=== PATIENT | male | born 1970 | race American Indian/Alaskan Native ===

== ENCOUNTER 2017-11-19 11:13 | Emergency (ER) | payer OTHER ==
[2017-11-19] MEDS ORDERED: NACL 0.9% 1000 ML 1,000 ML IV ONE ×3 (11:35→12:48)
[2017-11-19] MEDS ORDERED: NARCAN 2 MG/2 ML IV ONE (11:35)
[2017-11-19] MEDS ORDERED: ZOFRAN IV ONE ×2 (11:36→11:44)
--- NOTE | 2017-11-19 11:44 | Emergency Department Report ---
ED Altered Mental Status HPI - General Chief Complaint: Overdose Stated Complaint: OVERDOSE Time Seen by Provider: 11/19/17 11:32 Source: EMS Mode of arrival: Stretcher Limitations: Altered Mental Status - History of Present Illness Initial Comments: Patient is 47 years old male known to this provider. Patient brought into the ER via EMS for evaluation of altered mental status and decreased responsiveness. EMS stated patient was found in someone else house. EMS stated that the patient initial respiratory rate was 4-6 breath their minutes with initial oxygen saturation of 60%. Patient pupils are pinpoint. Patient was given 2 mg of Narcan and he started spontaneously. Upon arrival to the ER physician oxygen saturation is 98% on room air, heart rate is 140. Patient is responding to voice stimuli, he is moving all his extremities. Patient immediately put on personnel monitor, IV access, fluid is started and patient given another Narcan 2 mg and started on Narcan drip. EMS is stated that the bystander was found patient told them that patient had history of heroine addiction. MD Complaint: altered mental status, confusion, decreased responsiveness -: unknown - Related Data Allergies Allergy/AdvReac Type Severity Reaction Status Date / Time No Known Allergies Allergy Unverified 11/19/17 11:31 ED Review of Systems ROS: Stated complaint: OVERDOSE Other details as noted in HPI Comment: Unobtainable due to pts medical conditions ED Past Medical Hx - Past Medical History Previous Medical History?: No - Surgical History Past Surgical History?: No - Social History Smoking Status: Unknown if ever smoked Substance Use Type: Heroin ED Physical Exam - General Limitations: Altered Mental Status General appearance: obtunded - Head Head exam: Present: other (abrasion to the nose.) - Eye Eye exam: Present: normal appearance Pupils: Present: other (pinpoint pupil) - ENT ENT exam: Present: normal exam, mucous membranes dry - Neck Neck exam: Present: normal inspection, full ROM. Absent: tenderness, meningismus, lymphadenopathy, thyromegaly - Respiratory Respiratory exam: Present: normal lung sounds bilaterally - Cardiovascular Cardiovascular Exam: Present: tachycardia - GI/Abdominal GI/Abdominal exam: Present: soft, normal bowel sounds. Absent: distended, tenderness, guarding, rebound, rigid, organomegaly, mass, bruit, pulsatile mass , hernia - Extremities Exam Extremities exam: Present: normal inspection, full ROM, normal capillary refill. Absent: pedal edema, calf tenderness - Back Exam Back exam: Present: normal inspection, full ROM. Absent: CVA tenderness (R), CVA tenderness (L), muscle spasm, paraspinal tenderness, vertebral tenderness, rash noted - Neurological Exam Neurological exam: Present: altered, CN II-XII intact, reflexes normal - Skin Skin exam: Present: warm, intact, normal color ED Course Vital Signs 11/19/17 11/19/17 11/19/17 11:28 11:30 11:31 Temperature 97.9 F Pulse Rate 112 H 116 H Respiratory 8 L 11 L 14 Rate Blood Pressure 121/90 134/95 O2 Sat by Pulse 95 95 93 Oximetry 11/19/17 11/19/17 11/19/17 11:37 12:00 12:36 Temperature Pulse Rate 124 H 111 H Respiratory 20 13 Rate Blood Pressure 121/90 121/90 O2 Sat by Pulse 92 98 97 Oximetry 11/19/17 11/19/17 11/19/17 13:00 13:30 14:00 Temperature Pulse Rate 104 H 101 H 105 H Respiratory 9 L 9 L 11 L Rate Blood Pressure 99/69 104/77 110/75 O2 Sat by Pulse 97 97 94 Oximetry 11/19/17 11/19/17 11/19/17 14:30 15:00 15:30 Temperature Pulse Rate 104 H 106 H 102 H Respiratory 17 10 L 10 L Rate Blood Pressure 110/75 107/77 113/78 O2 Sat by Pulse 96 98 96 Oximetry 11/19/17 11/19/17 11/19/17 16:00 16:30 17:00 Temperature Pulse Rate 103 H 102 H 104 H Respiratory 15 12 10 L Rate Blood Pressure 120/80 132/96 126/83 O2 Sat by Pulse 97 100 96 Oximetry - Reevaluation(s) Reevaluation #1: 11/19/17 13:52 Patient now is alert and oriented 3. Patient still does not also the question if took drugs or not. Reevaluation #2: 11/19/17 16:43 Patient is awake, alert and oriented 3. Patient stated that he used heroine and fentanyl. He stated that he was thinking that he using a small dose but obviously he stated that I used a larger dose. Patient declined drug rehabilitation. Also stated that he was not trying to kill himself he was just trying to get high. I discontinue the Narcan drip and the patient would be observed in the ER for another 2 hours before discharge. - Lab Data Result diagrams: 11/19/17 13:13 11/19/17 11:53 Lab Results 11/19/17 11/19/17 11/19/17 Range/Units 11:53 11:53 11:53 WBC (4.5-11.0) K/mm3 RBC (3.65-5.03) M/mm3 Hgb (11.8-15.2) gm/dl Hct (35.5-45.6) % MCV (84-94) fl MCH (28-32) pg MCHC (32-34) % RDW (13.2-15.2) % Plt Count (140-440) K/mm3 Lymph % (Auto) (13.4-35.0) % Clarke % (Auto) (0.0-7.3) % Eos % (Auto) (0.0-4.3) % Baso % (Auto) (0.0-1.8) % Lymph # (1.2-5.4) K/mm3 Clarke # (0.0-0.8) K/mm3 Eos # (0.0-0.4) K/mm3 Baso # (0.0-0.1) K/mm3 Seg Neutrophils % (40.0-70.0) % Seg Neutrophils # (1.8-7.7) K/mm3 Sodium 139 (137-145) mmol/L Potassium 5.3 H (3.6-5.0) mmol/L Chloride 99.6 (98-107) mmol/L Carbon Dioxide 26 (22-30) mmol/L Anion Gap 19 mmol/L BUN 14 (9-20) mg/dL Creatinine 1.8 H (0.8-1.5) mg/dL Estimated GFR 49 ml/min BUN/Creatinine Ratio 8 % Glucose 58 L (75-100) mg/dL Lactic Acid 3.30 H* (0.7-2.0) mmol/L Calcium 9.2 (8.4-10.2) mg/dL Total Bilirubin 0.30 (0.1-1.2) mg/dL AST 51 H (5-40) units/L ALT 55 (7-56) units/L Alkaline Phosphatase 70 (35-129) units/L Troponin T 0.106 H* (0.00-0.029) ng/mL Total Protein 8.9 H (6.3-8.2) g/dL Albumin 4.5 (3.9-5) g/dL Albumin/Globulin Ratio 1.0 % Triglycerides 101 (2-149) mg/dL Cholesterol 173 (50-199) mg/dL LDL Cholesterol Direct 112 (50-130) mg/dL HDL Cholesterol 64 H (40-59) mg/dL Cholesterol/HDL Ratio 2.70 % Urine Color (Yellow) Urine Turbidity (Clear) Urine pH (5.0-7.0) Ur Specific [place] (1.003-1.030) Urine Protein (Negative) mg/dL Urine Glucose (UA) (Negative) mg/dL Urine Ketones (Negative) mg/dL Urine Blood (Negative) Urine Nitrite (Negative) Urine Bilirubin (Negative) Urine Urobilinogen (<2.0) mg/dL Ur Leukocyte Esterase (Negative) Urine WBC (Auto) (0.0-6.0) /HPF Urine RBC (Auto) (0.0-6.0) /HPF U Epithel Cells (Auto) (0-13.0) /HPF Urine Bacteria (Auto) (Negative) /HPF Amorphous Crystals Urine Mucus /HPF Salicylates (2.8-20.0) mg/dL Urine Opiates Screen Urine Methadone Screen Acetaminophen (10.0-30.0) ug/mL Ur Barbiturates Screen Ur Phencyclidine Scrn Ur Amphetamines Screen U Benzodiazepines Scrn Urine Cocaine Screen U Marijuana (THC) Screen Drugs of Abuse Note Plasma/Serum Alcohol (0-0.07) % 11/19/17 11/19/17 11/19/17 Range/Units 11:53 11:53 11:53 WBC (4.5-11.0) K/mm3 RBC (3.65-5.03) M/mm3 Hgb (11.8-15.2) gm/dl Hct (35.5-45.6) % MCV (84-94) fl MCH (28-32) pg MCHC (32-34) % RDW (13.2-15.2) % Plt Count (140-440) K/mm3 Lymph % (Auto) (13.4-35.0) % Clarke % (Auto) (0.0-7.3) % Eos % (Auto) (0.0-4.3) % Baso % (Auto) (0.0-1.8) % Lymph # (1.2-5.4) K/mm3 Clarke # (0.0-0.8) K/mm3 Eos # (0.0-0.4) K/mm3 Baso # (0.0-0.1) K/mm3 Seg Neutrophils % (40.0-70.0) % Seg Neutrophils # (1.8-7.7) K/mm3 Sodium (137-145) mmol/L Potassium (3.6-5.0) mmol/L Chloride (98-107) mmol/L Carbon Dioxide (22-30) mmol/L Anion Gap mmol/L BUN (9-20) mg/dL Creatinine (0.8-1.5) mg/dL Estimated GFR ml/min BUN/Creatinine Ratio % Glucose (75-100) mg/dL Lactic Acid (0.7-2.0) mmol/L Calcium (8.4-10.2) mg/dL Total Bilirubin (0.1-1.2) mg/dL AST (5-40) units/L ALT (7-56) units/L Alkaline Phosphatase (35-129) units/L Troponin T (0.00-0.029) ng/mL Total Protein (6.3-8.2) g/dL Albumin (3.9-5) g/dL Albumin/Globulin Ratio % Triglycerides (2-149) mg/dL Cholesterol (50-199) mg/dL LDL Cholesterol Direct (50-130) mg/dL HDL Cholesterol (40-59) mg/dL Cholesterol/HDL Ratio % Urine Color (Yellow) Urine Turbidity (Clear) Urine pH (5.0-7.0) Ur Specific [place] (1.003-1.030) Urine Protein (Negative) mg/dL Urine Glucose (UA) (Negative) mg/dL Urine Ketones (Negative) mg/dL Urine Blood (Negative) Urine Nitrite (Negative) Urine Bilirubin (Negative) Urine Urobilinogen (<2.0) mg/dL Ur Leukocyte Esterase (Negative) Urine WBC (Auto) (0.0-6.0) /HPF Urine RBC (Auto) (0.0-6.0) /HPF U Epithel Cells (Auto) (0-13.0) /HPF Urine Bacteria (Auto) (Negative) /HPF Amorphous Crystals Urine Mucus /HPF Salicylates < 0.3 L (2.8-20.0) mg/dL Urine Opiates Screen Urine Methadone Screen Acetaminophen < 5.0 L (10.0-30.0) ug/mL Ur Barbiturates Screen Ur Phencyclidine Scrn Ur Amphetamines Screen U Benzodiazepines Scrn Urine Cocaine Screen U Marijuana (THC) Screen Drugs of Abuse Note Plasma/Serum Alcohol < 0.01 (0-0.07) % 11/19/17 11/19/17 11/19/17 Range/Units 13:13 14:08 14:08 WBC 13.6 H (4.5-11.0) K/mm3 RBC 5.53 H (3.65-5.03) M/mm3 Hgb 15.6 H (11.8-15.2) gm/dl Hct 48.0 H (35.5-45.6) % MCV 87 (84-94) fl MCH 28 (28-32) pg MCHC 32 (32-34) % RDW 15.9 H (13.2-15.2) % Plt Count 164 (140-440) K/mm3 Lymph % (Auto) 6.3 L (13.4-35.0) % Clarke % (Auto) 11.2 H (0.0-7.3) % Eos % (Auto) 0.1 (0.0-4.3) % Baso % (Auto) 0.3 (0.0-1.8) % Lymph # 0.9 L (1.2-5.4) K/mm3 Clarke # 1.5 H (0.0-0.8) K/mm3 Eos # 0.0 (0.0-0.4) K/mm3 Baso # 0.0 (0.0-0.1) K/mm3 Seg Neutrophils % 82.1 H (40.0-70.0) % Seg Neutrophils # 11.1 H (1.8-7.7) K/mm3 Sodium (137-145) mmol/L Potassium (3.6-5.0) mmol/L Chloride (98-107) mmol/L Carbon Dioxide (22-30) mmol/L Anion Gap mmol/L BUN (9-20) mg/dL Creatinine (0.8-1.5) mg/dL Estimated GFR ml/min BUN/Creatinine Ratio % Glucose (75-100) mg/dL Lactic Acid (0.7-2.0) mmol/L Calcium (8.4-10.2) mg/dL Total Bilirubin (0.1-1.2) mg/dL AST (5-40) units/L ALT (7-56) units/L Alkaline Phosphatase (35-129) units/L Troponin T (0.00-0.029) ng/mL Total Protein (6.3-8.2) g/dL Albumin (3.9-5) g/dL Albumin/Globulin Ratio % Triglycerides (2-149) mg/dL Cholesterol (50-199) mg/dL LDL Cholesterol Direct (50-130) mg/dL HDL Cholesterol (40-59) mg/dL Cholesterol/HDL Ratio % Urine Color Yellow (Yellow) Urine Turbidity Slightly-cloudy (Clear) Urine pH 5.0 (5.0-7.0) Ur Specific [place] 1.011 (1.003-1.030) Urine Protein 100 mg/dl (Negative) mg/dL Urine Glucose (UA) Neg (Negative) mg/dL Urine Ketones Neg (Negative) mg/dL Urine Blood Sm (Negative) Urine Nitrite Neg (Negative) Urine Bilirubin Neg (Negative) Urine Urobilinogen < 2.0 (<2.0) mg/dL Ur Leukocyte Esterase Neg (Negative) Urine WBC (Auto) 5.0 (0.0-6.0) /HPF Urine RBC (Auto) 1.0 (0.0-6.0) /HPF U Epithel Cells (Auto) 1.0 (0-13.0) /HPF Urine Bacteria (Auto) 1+ (Negative) /HPF Amorphous Crystals Few Urine Mucus Few /HPF Salicylates (2.8-20.0) mg/dL Urine Opiates Screen Presumptive positive Urine Methadone Screen Presumptive negative Acetaminophen (10.0-30.0) ug/mL Ur Barbiturates Screen Presumptive negative Ur Phencyclidine Scrn Presumptive negative Ur Amphetamines Screen Presumptive negative U Benzodiazepines Scrn Presumptive negative Urine Cocaine Screen Presumptive positive U Marijuana (THC) Screen Presumptive negative Drugs of Abuse Note Disclamer Plasma/Serum Alcohol (0-0.07) % 11/19/17 11/19/17 Range/Units 14:25 14:25 WBC (4.5-11.0) K/mm3 RBC (3.65-5.03) M/mm3 Hgb (11.8-15.2) gm/dl Hct (35.5-45.6) % MCV (84-94) fl MCH (28-32) pg MCHC (32-34) % RDW (13.2-15.2) % Plt Count (140-440) K/mm3 Lymph % (Auto) (13.4-35.0) % Clarke % (Auto) (0.0-7.3) % Eos % (Auto) (0.0-4.3) % Baso % (Auto) (0.0-1.8) % Lymph # (1.2-5.4) K/mm3 Clarke # (0.0-0.8) K/mm3 Eos # (0.0-0.4) K/mm3 Baso # (0.0-0.1) K/mm3 Seg Neutrophils % (40.0-70.0) % Seg Neutrophils # (1.8-7.7) K/mm3 Sodium (137-145) mmol/L Potassium (3.6-5.0) mmol/L Chloride (98-107) mmol/L Carbon Dioxide (22-30) mmol/L Anion Gap mmol/L BUN (9-20) mg/dL Creatinine (0.8-1.5) mg/dL Estimated GFR ml/min BUN/Creatinine Ratio % Glucose (75-100) mg/dL Lactic Acid 1.80 (0.7-2.0) mmol/L Calcium (8.4-10.2) mg/dL Total Bilirubin (0.1-1.2) mg/dL AST (5-40) units/L ALT (7-56) units/L Alkaline Phosphatase (35-129) units/L Troponin T 0.058 H D (0.00-0.029) ng/mL Total Protein (6.3-8.2) g/dL Albumin (3.9-5) g/dL Albumin/Globulin Ratio % Triglycerides (2-149) mg/dL Cholesterol (50-199) mg/dL LDL Cholesterol Direct (50-130) mg/dL HDL Cholesterol (40-59) mg/dL Cholesterol/HDL Ratio % Urine Color (Yellow) Urine Turbidity (Clear) Urine pH (5.0-7.0) Ur Specific [place] (1.003-1.030) Urine Protein (Negative) mg/dL Urine Glucose (UA) (Negative) mg/dL Urine Ketones (Negative) mg/dL Urine Blood (Negative) Urine Nitrite (Negative) Urine Bilirubin (Negative) Urine Urobilinogen (<2.0) mg/dL Ur Leukocyte Esterase (Negative) Urine WBC (Auto) (0.0-6.0) /HPF Urine RBC (Auto) (0.0-6.0) /HPF U Epithel Cells (Auto) (0-13.0) /HPF Urine Bacteria (Auto) (Negative) /HPF Amorphous Crystals Urine Mucus /HPF Salicylates (2.8-20.0) mg/dL Urine Opiates Screen Urine Methadone Screen Acetaminophen (10.0-30.0) ug/mL Ur Barbiturates Screen Ur Phencyclidine Scrn Ur Amphetamines Screen U Benzodiazepines Scrn Urine Cocaine Screen U Marijuana (THC) Screen Drugs of Abuse Note Plasma/Serum Alcohol (0-0.07) % - Radiology Data Radiology results: report reviewed CT brain is negative for acute findings. - Medical Decision Making Artie is 47 years old male unknown to this provider. Patient brought into the ER via EMS for evaluation of altered mental status and decreased responsiveness. EMS stated patient was found in someone else house. EMS stated that the patient initial respiratory rate was 4-6 breath their minutes with initial oxygen saturation of 60%. Patient pupils are pinpoint. Patient was given 2 mg of Narcan and he started spontaneously. Upon arrival to the ER physician oxygen saturation is 98% on room air, heart rate is 140. Patient is responding to voice stimuli, he is moving all his extremities. Patient immediately put on personnel monitor, IV access, fluid is started and patient given another Narcan 2 mg and started on Narcan drip. EMS is stated that the bystander was found patient told them that patient had history of heroine addiction. Patient observed in the ER. Patient stated that he is feeling much better. He is alert and oriented 3. Admitted that he used heroin and fentanyl last night. I discussed with the patient the need for drug rehabilitation but patient declined and stated that he will follow-up with his primary care physician. Discharged home in a stable clinical condition. Critical Care Time: Yes Critical care time in (mins) excluding proc time.: 30 Critical care attestation.: If time is entered above; I have spent that time in minutes in the direct care of this critically ill patient, excluding procedure time. ED Disposition Clinical Impression: Altered mental status, Opiate or related narcotic overdose, Polysubstance abuse Disposition: OP ADMIT IP TO THIS HOSP Is pt being admited?: Yes Condition: Stable Instructions: Polysubstance Abuse (ED) Referrals: PRIMARY CARE, [Primary Care Provider] - 3-5 Days
[2017-11-19] MEDS ORDERED: NARCAN 2 MG/2 ML 2 MG in NACL 0.9% 500 ML 500 ML IV ONE (12:00)
[2017-11-19 12:42] LABS: Albumin 4.5 g/dL (3.9-5); Calcium 9.2 mg/dL (8.4-10.2)
[2017-11-19 12:56] LABS: Chol/HDL Ratio 2.7 %
--- NOTE | 2017-11-19 13:22 | Cat Scan Report ---
FINAL REPORT EXAM: CT HEAD/BRAIN WO CON HISTORY: Altered Mental Status TECHNIQUE: CT of the head was performed. No intravenous contrast was administered. PRIORS: None. FINDINGS: There is no evidence of intracranial hemorrhage. There is no edema, mass effect or midline shift. There are no abnormal extra-axial fluid collections. The ventricles are appropriate for brain volume. There is no skull fracture seen. The visualized aspects of the sinuses are clear. IMPRESSION: There is no acute intracranial abnormality identified.
[2017-11-19 13:25] LABS: Basophils % (Auto) 0.3 % (0.0-1.8); Eosinophils % (Auto) 0.1 % (0.0-4.3); Hemoglobin 15.6 gm/dl (11.8-15.2); Lymphocytes # (Auto) 0.9 K/mm3 (1.2-5.4); Lymphocytes % (Auto) 6.3 % (13.4-35.0); Mean Corpuscular HGB Conc 32 % (32-34); Mean Corpuscular Hemoglobin 28 pg (28-32); Mean Corpuscular Volume 87 fl (84-94); Monocytes # (Auto) 1.5 K/mm3 (0.0-0.8); Monocytes % (Auto) 11.2 % (0.0-7.3); Platelet Count 164 K/mm3 (140-440); Red Blood Count 5.53 M/mm3 (3.65-5.03); Red Cell Distribution Width 15.9 % (13.2-15.2)
[2017-11-19 14:52] LABS: Amorphous Crystals,Urine Few; Bacteria,Urine 1+ /HPF (Negative); Bilirubin,Urine NEG (Negative); Blood,Urine SM (Negative); Color,Urine Yellow (Yellow); Mucus,Urine FEW /HPF; Urobilinogen,Urine < 2.0 mg/dL (<2.0)
--- NOTE | 2017-11-19 14:59 | XRay Report ---
FINAL REPORT PROCEDURE: XR CHEST 1V AP TECHNIQUE: Chest radiograph anteroposterior view. CPT 93825 HISTORY: Altered Mental Status COMPARISON: No prior studies are available for comparison. FINDINGS: Heart: Normal. Mediastinum/Vessels: Tortuous or ectatic aorta. Lungs/Pleural space: No infiltrate, effusion, or pneumothorax. Bony thorax: No acute osseous abnormality. Life support devices: None. IMPRESSION: No radiographic evidence of acute cardiopulmonary abnormality.
[2017-11-19 15:01] LABS: Amphetamine Screen,Urine PRESUMPTIVE NEGATIVE; Benzodiazepines Screen,Urine PRESUMPTIVE NEGATIVE; Cannabinoid Screen,Urine PRESUMPTIVE NEGATIVE; Methadone Screen,Urine PRESUMPTIVE NEGATIVE
[2017-11-19 15:20] LABS: Cocaine Screen,Urine PRESUMPTIVE POSITIVE; Opiate Screen,Urine PRESUMPTIVE POSITIVE
[2017-11-19 19:47] VITALS: BP 141/93
== END 2017-11-19 20:00 | disposition admitted as inpatient to this hospital (09) ==
LOC: ED 11:13
DX: T40.601A Poisoning by unspecified narcotics, accidental (unintentional), initial encounter (principal); R41.82 Altered mental status, unspecified; F11.10 Opioid abuse, uncomplicated; Y92.89 Other specified places as the place of occurrence of the external cause
CPT/HCPCS: 36415; 70450; 71045; 80053; 80061; 80307; 81001; 82140; 84484; 85025; 93005; 93010; 96361; 96365; 96366; 96375; 96376; 99291; G0480; J2310; J2405; J7030; J7040; 80320

== ENCOUNTER 2018-04-07 15:17 | Emergency (ER) | payer MEDICAID, OTHER ==
[2018-04-07 15:31] VITALS: BP 130/84
[2018-04-07] MEDS ORDERED: SOLU-Medrol IM ONE (15:31)
[2018-04-07] MEDS ORDERED: PROVENTIL IH ONE ×2 (15:31→16:01)
--- NOTE | 2018-04-07 15:35 | Emergency Department Report ---
Minor Respiratory - HPI Chief Complaint: Adult Asthma Stated Complaint: ASTHMA ATTACK Time Seen by Provider: 04/07/18 15:30 Duration: 1 Day Pain Location: Chest Severity: mild Minor Respiratory: Yes Able to Tolerate Fluids, Yes Cough, No Rhinorrhea, No Sore Throat, No Ear Pain, No Sick Contacts, No Hemoptysis, No Chest Pain, No Shortness of Breath, No Fever Other History: 47 YO AA MALE WITH ASTHMA ATTACK. ON NO MEDS AT HOME. NO FEVER. NO SPUTUM. WORKS OUTSIDE ED Review of Systems ROS: Stated complaint: ASTHMA ATTACK Other details as noted in HPI Comment: All other systems reviewed and negative Constitutional: denies: chills, fever Eyes: denies: eye pain ENT: denies: throat pain Respiratory: see HPI, cough, shortness of breath, wheezing Cardiovascular: denies: chest pain Endocrine: denies: flushing Gastrointestinal: denies: abdominal pain Genitourinary: denies: urgency Musculoskeletal: denies: back pain Skin: denies: lesions Neurological: denies: weakness Psychiatric: denies: depression Hematological/Lymphatic: denies: easy bleeding ED Past Medical Hx - Past Medical History Hx Asthma: Yes - Social History Smoking Status: Unknown if ever smoked Substance Use Type: Heroin - Medications Home Medications: Home Medications Medication Instructions Recorded Confirmed Last Taken Type Albuterol Sulfate [Ventolin HFA] 2 puff IH Q4H PRN #1 hfa.[email or web address] 04/07/18 Unk nown Rx Amoxicillin [Trimox CAP] 500 mg PO BID #20 capsule 04/07/18 Unknown Rx Fluticasone [Flonase] 1 spray NS QDAY #1 bottle 04/07/18 Unknown Rx predniSONE [Deltasone] 50 mg PO QDAY #5 tab 04/07/18 Unknown Rx Minor Respiratory Exam - Exam General: Vital signs noted. No distress. Alert and acting appropriately. HEENT: Yes Pharyngeal Erythema, Yes Moist Mucous Membranes, No Pharyngeal Exudates, No Rhinorrhea, No Conjuctival Injection, No Maxillary Tenderness Ear: Neither TM Bulge, Neither TM Erythema, Neither EAC Pain, Neither EAC Discharge Neck: Yes Supple, No Adenopathy Lungs: Yes Good Air Exchange, Yes Wheezes (B), No Ronchi, No Stridor, No Cough, No Labored Respirations, No Retractions, No Use of Accessory Muscles, No Other Abnormal Lung Sounds Heart: Yes Regular, No Murmur Abdomen: Yes Normal Bowel Sounds, No Tenderness, No Peritoneal Signs Skin: No Rash, No Edema Neurologic: Alert and oriented, no deficits. Musculoskeletal: Unremarkable. ED Course - Reevaluation(s) Reevaluation #1: 04/07/18 16:01 IMPROVING P DUONEB DC HOME W DC POC ED Medical Decision Making - Medical Decision Making ASTHMA AE OUT OF MEDS DUONEB AND SOLUMEDROL IM DC HOME WITH RX Critical care attestation.: If time is entered above; I have spent that time in minutes in the direct care of this critically ill patient, excluding procedure time. ED Disposition Clinical Impression: Asthma with acute exacerbation, URTI (acute upper respiratory infection) Disposition: DC-01 TO HOME OR SELFCARE Is pt being admited?: No Does the pt Need Aspirin: No Condition: Stable Instructions: Asthma (ED) Prescriptions: Albuterol Sulfate [Ventolin HFA] 2 puff IH Q4H PRN #1 hfa.aer.ad PRN Reason: Shortness Of Breath Amoxicillin [Trimox CAP] 500 mg PO BID #20 capsule Fluticasone [Flonase] 1 spray NS QDAY #1 bottle predniSONE [Deltasone] 50 mg PO QDAY #5 tab Referrals: [facility] [Outside] - 3-5 Days Time of Disposition: 15:33
== END 2018-04-07 16:24 | disposition home or self-care (01) ==
LOC: ED 15:17
DX: J45.901 Unspecified asthma with (acute) exacerbation (principal); J06.9 Acute upper respiratory infection, unspecified
CPT/HCPCS: 94640; 96372; 99282; J2930

== ENCOUNTER 2018-06-17 10:56 | Emergency (ER) | payer MEDICAID, OTHER ==
[2018-06-17] MEDS ORDERED: PROVENTIL IH ONE (11:04)
[2018-06-17] MEDS ORDERED: DUONEB *Not for PRN Use IH ONE (11:04)
[2018-06-17] MEDS ORDERED: ATROVENT IH ONE (11:05)
[2018-06-17] MEDS ORDERED: SOLU-Medrol IM ONE (11:05)
--- NOTE | 2018-06-17 11:56 | XRay Report ---
PROCEDURE: XR CHEST ROUTINE 2V TECHNIQUE: Chest radiograph, PA and lateral views. HISTORY: wheezing, SOB, hx of asthma COMPARISONS: None currently available. FINDINGS: Cardiac silhouette is within normal limits. There is no effusion. There is no pneumothorax. There is no consolidation. Lungs appear hyperinflated and may be related to reactive airway disease or COPD. There are no suspicious osseous lesions. IMPRESSION: * Hyperinflated lungs. * Otherwise, no acute cardiopulmonary findings. This document is electronically signed by Kyaw Robbins MD., Jun 17 2018 11:54:40 AM ET
--- NOTE | 2018-06-17 13:08 | Emergency Department Report ---
ED Asthma HPI - General Chief Complaint: Adult Asthma Stated Complaint: ASTHMA ATTACK Time Seen by Provider: 06/17/18 11:17 Source: patient Mode of arrival: Ambulatory Limitations: No Limitations - History of Present Illness Initial Comments: Pt is a 48 yo male who presents to the ED with c/o asthma exacerbation. The patient states that yesterday he was working outside. He states he began to have SOB and wheezing yesterday and it progressively got worse. He states he has an occasional dry cough. He denies any productive cough, fever, congestion. He was here last month for acute asthma exacerbation and was given a prescription for ventolin but did not get the inhaler due to cost. - Related Data Previous Rx's Medication Instructions Recorded Last Taken Type Fluticasone [Flonase] 1 spray NS QDAY #1 bottle 04/07/18 Unknown Rx Albuterol Sulfate [Ventolin Hfa] 2 puff IH Q4HR PRN #1 hfa.aer.ad 06/17/18 Unknown Rx Montelukast [Singulair] 10 mg PO QPM #30 tablet 06/17/18 Unknown Rx Prednisone [predniSONE 10 mg 10 mg PO .TAPER #1 tab.ds.pk 06/17/18 Unknown Rx (6-Day Pack, 21 Tabs)] Allergies Allergy/AdvReac Type Severity Reaction Status Date / Time No Known Allergies Allergy Verified 04/07/18 15:21 ED Review of Systems ROS: Stated complaint: ASTHMA ATTACK Other details as noted in HPI Comment: All other systems reviewed and negative ED Past Medical Hx - Past Medical History Previous Medical History?: Yes Hx Asthma: Yes - Surgical History Past Surgical History?: No - Social History Smoking Status: Never Smoker Substance Use Type: None - Medications Home Medications: Home Medications Medication Instructions Recorded Confirmed Last Taken Type Fluticasone [Flonase] 1 spray NS QDAY #1 bottle 04/07/18 Unknown Rx Albuterol Sulfate [Ventolin Hfa] 2 puff IH Q4HR PRN #1 hfa.aer.ad 06/17/18 Unknown Rx Montelukast [Singulair] 10 mg PO QPM #30 tablet 06/17/18 Unknown Rx Prednisone [predniSONE 10 mg 10 mg PO .TAPER #1 tab.ds.pk 06/17/18 Unknown Rx (6-Day Pack, 21 Tabs)] ED Physical Exam - General Limitations: No Limitations General appearance: alert - Head Head exam: Present: atraumatic, normocephalic - Eye Eye exam: Present: normal appearance, PERRL - Respiratory Respiratory exam: Present: respiratory distress (moderate), wheezes (diffusely ), other (poor air movement). Absent: rales, rhonchi, stridor, chest wall tenderness, accessory muscle use - Cardiovascular Cardiovascular Exam: Present: regular rate, normal rhythm, normal heart sounds. Absent: systolic murmur, diastolic murmur, rubs, gallop - Neurological Exam Neurological exam: Present: alert, oriented X3 - Psychiatric Psychiatric exam: Present: normal affect, normal mood - Skin Skin exam: Present: warm, dry, intact ED Course Vital Signs 06/17/18 06/17/18 06/17/18 11:04 11:29 13:21 Pulse Rate 66 94 H Respiratory 24 18 16 Rate Blood Pressure 135/96 Blood Pressure 132/81 [Left] O2 Sat by Pulse 97 97 Oximetry - Reevaluation(s) Reevaluation #1: 06/17/18 13:08 pt given neb tx and steroids, on examination wheezing has resolved and pt has very good air movement ED Medical Decision Making - Lab Data Vital Signs 06/17/18 06/17/18 06/17/18 11:04 11:29 13:21 Pulse Rate 66 94 H Respiratory 24 18 16 Rate Blood Pressure 135/96 Blood Pressure 132/81 [Left] O2 Sat by Pulse 97 97 Oximetry - Radiology Data Radiology results: report reviewed CXR with hyperinflated lungs, otherwise no acute process - Medical Decision Making Pt is a 48 yo male who presents to the ED with c/o asthma exacerbation. The patient states that yesterday he was working outside. He states he began to have SOB and wheezing yesterday and it progressively got worse. He states he has an occasional dry cough. He denies any productive cough, fever, congestion. He was here last month for acute asthma exacerbation and was given a prescription for ventolin but did not get the inhaler due to cost. pt given neb tx and solumedrol. after tx, wheezing resolved and pt had good air movement. CXR with hyperinflated lungs, no acute process. pt prescribed inhaler, steroids, and singulair. advised to take medication as prescribed. Follow up with PCP in the next 2-3 days. Return to the ED immediately for any new or worsening symptoms. pt given list of community resources. given good rx card. discussed with pt the options at different pharmacies based on prices. Critical care attestation.: If time is entered above; I have spent that time in minutes in the direct care of this critically ill patient, excluding procedure time. ED Disposition Clinical Impression: Acute asthma exacerbation Qualifiers: Asthma severity: unspecified severity Asthma persistence: unspecified Qualified Code(s): J45.901 - Unspecified asthma with (acute) exacerbation Disposition: TO HOME OR SELFCARE Is pt being admited?: No Does the pt Need Aspirin: No Condition: Stable Instructions: Asthma (ED) Additional Instructions: Please take all medication as prescribed. Please follow up with a primary care doctor in the next 2-3 days. Return to the emergency room immediately for any new or worsening symptoms. Prescriptions: Prednisone [predniSONE 10 mg (6-Day Pack, 21 Tabs)] 10 mg PO .TAPER #1 tab.ds.pk Montelukast [Singulair] 10 mg PO QPM #30 tablet Albuterol Sulfate [Ventolin Hfa] 2 puff IH Q4HR PRN #1 hfa.aer.ad PRN Reason: Shortness Of Breath Referrals: FABIANA ZAYAS MD [Primary Care Provider] - 2-3 Days Time of Disposition: 13:08 Print Language: HUNGARIAN
[2018-06-17 13:22] VITALS: BP 132/81
== END 2018-06-17 13:22 | disposition home or self-care (01) ==
LOC: ED 10:56
DX: J45.901 Unspecified asthma with (acute) exacerbation (principal)
CPT/HCPCS: 71046; 94640; 96372; 99283; J2930

== ENCOUNTER 2019-01-16 15:05 | Emergency (ER) | payer MEDICAID, OTHER ==
[2019-01-16 15:25] VITALS: BP 112/87
--- NOTE | 2019-01-16 15:25 | Emergency Department Report ---
Blank Doc - Documentation Documentation: 48-year-old male that presents depression. Denies any SI/HI. Wants mental he alth help. This initial assessment/diagnostic orders/clinical plan/treatment(s) is/are subject to change based on patient's health status, clinical progression and re- assessment by fellow clinical providers in the ED. Further treatment and workup at subsequent clinical providers discretion. Patient/guardians urged not to elope from the ED as their condition may be serious if not clinically assessed and managed. Initial orders include: 1- Patient sent to Main ED for further evaluation and treatment 2- labs 3- UA
[2019-01-16 15:56] LABS: Bilirubin,Urine NEG (Negative); Blood,Urine NEG (Negative); Color,Urine Amber (Yellow); Mucus,Urine FEW /HPF
[2019-01-16 16:03] LABS: Amphetamine Screen,Urine PRESUMPTIVE NEGATIVE; Benzodiazepines Screen,Urine PRESUMPTIVE NEGATIVE; Cannabinoid Screen,Urine PRESUMPTIVE NEGATIVE; Methadone Screen,Urine PRESUMPTIVE NEGATIVE; Opiate Screen,Urine PRESUMPTIVE NEGATIVE
[2019-01-16 16:28] LABS: Cocaine Screen,Urine PRESUMPTIVE POSITIVE
[2019-01-16 16:55] LABS: BUN/Creatinine Ratio 16; Blood Urea Nitrogen 16 mg/dL (9-20); Calcium 9.4 mg/dL (8.4-10.2); Hemolysis Index 38
[2019-01-16 17:09] LABS: Basophils # (Auto) 0.2 K/mm3 (0.0-0.1); Basophils % (Auto) 1.6 % (0.0-1.8); Eosinophils # (Auto) 0.4 K/mm3 (0.0-0.4); Eosinophils % (Auto) 4.2 % (0.0-4.3); Hematocrit 51.5 % (35.5-45.6); Hemoglobin 17.1 gm/dl (11.8-15.2); Lymphocytes # (Auto) 3.2 K/mm3 (1.2-5.4); Lymphocytes % (Auto) 30.8 % (13.4-35.0); Mean Corpuscular HGB Conc 33 % (32-34); Mean Corpuscular Volume 86 fl (84-94); Monocytes # (Auto) 0.8 K/mm3 (0.0-0.8); Monocytes % (Auto) 7.3 % (0.0-7.3); Platelet Count 217 K/mm3 (140-440); Red Blood Count 5.99 M/mm3 (3.65-5.03); Red Cell Distribution Width 14.3 % (13.2-15.2)
== END 2019-01-16 19:00 | disposition left against medical advice (07) ==
LOC: ED 15:05
DX: R41.82 Altered mental status, unspecified (principal); Z53.21 Procedure and treatment not carried out due to patient leaving prior to being seen by health care provider
CPT/HCPCS: 36415; 80048; 80307; 80320; 81001; 85025; G0480